=== PATIENT | female | born 1940 | race Caucasian/White ===

== ENCOUNTER 2025-04-24 17:57 | Emergency (ER) | payer OTHER, SELFPAY ==
[2025-04-24 17:59] VITALS: BP 145/56
[2025-04-24 19:00] VITALS: BP 150/58
[2025-04-24 19:07] LABS: ALT (SGPT) 19 U/L (0-35); AST (SGOT) 35 U/L (14-36); Albumin 2.9 g/dl (3.5-5.0); Alkaline Phosphatase 211 U/L (38-126); Blood Urea Nitrogen 16 mg/dl (7-17); Calcium 9.2 mg/dl (8.4-10.2); Carbon Dioxide 25 mmol/L (22-30); Chloride 107 mmol/L (98-107); Glucose 114 mg/dl (70-99); Potassium 3.8 mmol/L (3.5-5.1); Sodium 137 mmol/L (135-145); Total Protein 6.3 g/dl (6.3-8.2); eGFR > 60.00
[2025-04-24 20:00] VITALS: BP 117/57
--- NOTE | 2025-04-24 20:58 | ED.GENMED ---
History of Present Illness
General
Chief Complaint: Breathing Problem
Source: patient
Time Seen by Provider: 04/24/25 20:42
History of Present Illness
History of Present Illness:
84-year-old female presents to the emergency room complaining of left-sided chest pain. Patient had a fall about a week ago where she struck the left side of her chest. She is having pain with movement and deep breaths. She seems to be a bit more
short of breath. Because the pain was not getting better they family took the patient to [facility]. They did a rib series and noted a left pleural effusion prompting her to be referred to the emergency room. Patient has a history of
cirrhosis. She does not take any anticoagulants. Patient denies any abdominal pain.
Phy Exam
Physical Exam
Physical Exam:
General: Awake, Alert, Oriented X3. No acute distress. Appears stated age
Vitals: unremarkable
Head: Atraumatic
Eyes: Pupils equal, EOMI
Throat: Airway intact, no exudates
Neck: Trachea midline
Chest: Tender to palpation left lateral lower thorax, no crepitance
Lungs: Clear and equal b/l
Heart: Regular rate, no murmurs
Abd: Soft, Nontender, No pulsatile mass
Neuro: Nonfocal
Skin: Warm, dry, no rash
Extremities: pulses equal b/l, no edema
Scores
Heart Failure Risk
Heart Failure Risk Score: Not Applicable
Course
Orders/Labs/Results
Orders:
Orders
04/24/25 18:23
CMP [Comprehensive Metabolic Panel] Urgent
04/24/25 20:57
CT Chest W/o Iv Contrast Urgent
Comment:
Reason For Exam: injury left chest, effusion
04/24/25 21:18
Complete Blood Count/With Diff Urgent
NT-proBNP Urgent
Prothrombin Time Urgent
Abnormal Lab Results
04/24/25 04/24/25
18:23 21:18
RBC 3.42 L 10^6/uL
(4.20-5.40)
Hgb 11.9 L g/dL
(12.0-16.0)
Hct 34.8 L %
(37.0-47.0)
MCV 101.8 H fL
(81.0-99.0)
MCH 34.8 H pg
(27.0-31.0)
RDW 15.6 H %
(11.5-14.5)
Absolute Monos (auto) 0.7 H 10^3/uL
(0.1-0.6)
Monocytes % 10.7 H %
(1.7-9.3)
PT 15.7 H Sec
(11.4-14.6)
Glucose 114 H mg/dl
(70-99)
Total Bilirubin 2.2 H mg/dl
(0.2-1.3)
Alkaline Phosphatase 211 H U/L
(38-126)
Albumin 2.9 L g/dl
(3.5-5.0)
04/24/25 21:18
04/24/25 18:23
Vital Signs
Initial and Last Documented VS:
Initial Vital Signs
Temp Pulse Resp BP Pulse Ox
97.9 F 60 22 145/56 97
04/24/25 17:59 04/24/25 17:59 04/24/25 17:59 04/24/25 17:59 04/24/25 17:59
Last Documented Vital Signs
Temp Pulse Resp BP Pulse Ox
97.9 F 81 21 141/60 95
04/24/25 17:59 04/24/25 22:55 04/24/25 22:55 04/24/25 22:55 04/24/25 22:55
MDM/Problems Addressed
Differential Diagnosis Includes:
Rib fractures, hemothorax, pleural effusion
MDM/Problems Addressed:
Patient presents with abnormal chest x-ray as an outpatient. She did have a fall recently. She is having left-sided chest pain. CT obtained which shows multiple rib fractures. She has a small pleural effusion. She is not hypoxic. Given the rib
fractures are a week old I do not believe there is any benefit to hospitalization. Treat with analgesia, incentive spirometer. I do not believe the pleural effusion is large enough to require any sort of intervention. However we will give her the
contact information for pulmonary to follow-up with as an outpatient.
*Radiology
Radiology exam reviewed: radiology read reviewed
*Pulse Oximetry
SaO2: 93
Oxygen Mode of Delivery: Room air
Patient hypoxic: no
*Critical Care Note
Total Time (30-74mins, 75-104mins- exclusive of procedures): Not Applicable
ED Attending Note
-
Portions of this chart may have been created with voice recognition software.� Occasional wrong word or��sound alike� substitutions may have occurred due to the inherent limitations of voice recognition software.
Discharge Plan
Departure
Patient Disposition: Home (Routine Discharge)
Date of Disposition: 04/24/25
Time of Disposition: 22:52
Patient with high blood pressure during this ER visit?: No
Discharge Problem:
Multiple fractures of ribs
Instructions: Rib fracture or bruised rib - ED (DC)
Prescriptions:
New
tramadol 50 mg tablet
50 mg PO Q8H PRN (Reason: Pain) Qty: 14 0RF
No Action
furosemide 40 mg Tablet
40 mg PO DAILY
potassium chloride 10 mEq Capsule, Extended Release
10 meq PO DAILY
benzonatate 200 mg Capsule
200 mg PO BID
cyanocobalamin (vitamin B-12) [Vitamin B-12] 1,000 mcg Tablet
1,000 mcg PO DAILY
fluoxetine 20 mg Tablet
20 mg PO DAILY
spironolactone 50 mg Tablet
50 mg PO DAILY
lactulose 10 gram/15 mL Solution
30 ml PO DAILY
cholecalciferol (vitamin D3) [Vitamin D3] 25 mcg (1,000 unit) Tablet,Chewable
25 mcg PO DAILY
magnesium oxide 400 mg magnesium Tablet
400 mg PO DAILY
Referrals:
Duyen Telles MD [Family Provider, Family Practice]
Que Harris MD [Active, Pulmonary Medicine]
Activity Restrictions/Additional Instructions:
History of multiple rib fractures. Recommend taking Tylenol every 6 hours for pain. Apply lidocaine patches to the chest wall for pain control. You could also take tramadol 1 tablet every 8 hours as needed for pain. Return for worsening
shortness of breath
Interventions
Interventions:
*General Assessment Last Done: 04/24/25 21:05
*Neglect/Abuse Screening Last Done: 04/24/25 21:05
*ED COVID-19 Vaccine History Last Done: 04/24/25 17:59
*ED Influenza Vaccine History Last Done: 04/24/25 17:59
[facility] Fall Risk Assessment Tool Last Done: 04/24/25 21:05
*Risk Screen - Suicide (C-SSRS) Last Done: 04/24/25 17:59
*Nursing Disposition Last Done: 04/24/25 23:15
ED- Cardiac Assessment Last Done: 04/24/25 21:11
ED- Pulmonary Assessment Last Done: 04/24/25 21:11
Discharge Date and Time
Discharge Date/Time: 04/24/25 23:21
Print Language: SAMI
[2025-04-24 21:00] VITALS: BP 130/57
[2025-04-24 21:05] VITALS: BMI 33.8
[2025-04-24 21:25] LABS: Hematocrit 34.8 % (37.0-47.0); Hemoglobin 11.9 g/dL (12.0-16.0); Mean Corp Hgb Conc. 34.2 g/dL (33.0-37.0); Mean Corpuscular Volume 101.8 fL (81.0-99.0); Nucleated Red Blood Cells % 0 %; Platelet Count 133 10^3/uL (130-400); Red Cell Dist. Width 15.6 % (11.5-14.5)
[2025-04-24 21:39] LABS: INR 1.24; PT 15.7 Sec (11.4-14.6)
[2025-04-24 22:02] VITALS: BP 136/57
[2025-04-24 22:55] VITALS: BP 141/60
== END 2025-04-24 23:21 | disposition home or self-care (01) ==
LOC: EMR 17:57
PROVIDERS: EMERGENCY PHYSICIAN Emergency Medicine; FAMILY PHYSICIAN Family Medicine
DX: S22.42XA Multiple fractures of ribs, left side, initial encounter for closed fracture (principal); W19.XXXA Unspecified fall, initial encounter; J90 Pleural effusion, not elsewhere classified; K74.60 Unspecified cirrhosis of liver
CPT/HCPCS: 99284; 71250; 80053; 83880; 85025; 85610